=== PATIENT | female | born 1940 | race Caucasian/White ===

== ENCOUNTER 2018-05-10 09:44 | Emergency (ER) | payer OTHER ==
[~2018-05-10] VITALS: Ht 167.6 cm; Wt 68.0 kg
[2018-05-10] MEDS ORDERED: SYNTHROID50 MCG (09:57)
[2018-05-10] MEDS ORDERED: AVAPRO75 MG (09:57)
[2018-05-10] MEDS ORDERED: AMARYL (09:58)
== END 2018-05-10 19:19 | disposition home or self-care (01) ==
LOC: ER 09:44
DX: R11.2 Nausea with vomiting, unspecified (principal); R53.1 Weakness; F32.89 Other specified depressive episodes

== ENCOUNTER 2018-05-24 10:07 | Emergency (ER) | payer OTHER ==
[~2018-05-24] VITALS: Ht 157.5 cm; Wt 64.9 kg
[~2018-05-24 10:07] MED LIST: AMARYL; AVAPRO75 MG; SYNTHROID50 MCG
[2018-05-24] MEDS ORDERED: ACID REDUCER 1150 MG (11:00)
[2018-05-24] MEDS ORDERED: PENTYLENE GLY4000 ML (11:01)
[2018-05-24] MEDS ORDERED: OMEPRAZOLE20 MG (11:01)
[2018-05-24] MEDS ORDERED: VITAMIN B-121000 MCG (11:01)
[2018-05-24] MEDS ORDERED: CITALOPRAM HBR10 MG (11:01)
[2018-05-24] MEDS ORDERED: LASIX20 MG (11:02)
== END 2018-05-24 19:39 | disposition home or self-care (01) ==
LOC: ER 10:07
DX: K59.09 Other constipation (principal); L13.0 Dermatitis herpetiformis; R10.84 Generalized abdominal pain; N39.0 Urinary tract infection, site not specified; L89.329 Pressure ulcer of left buttock, unspecified stage

== ENCOUNTER 2018-06-21 13:41 | Emergency (ER) | payer OTHER ==
[~2018-06-21] VITALS: Ht 160 cm; Wt 66.7 kg
[~2018-06-21 13:41] MED LIST changes: +ACID REDUCER 1150 MG; +CITALOPRAM HBR10 MG; +LASIX20 MG; +OMEPRAZOLE20 MG; +PENTYLENE GLY4000 ML; +VITAMIN B-121000 MCG
[2018-06-21] MEDS ORDERED: SYNTHROID75 MCG PO (13:53)
[2018-06-21] MEDS ORDERED: APETIGEN P12.5 MG/15 PO (13:54)
[2018-06-21] MEDS ORDERED: GENTLE LAXATIVE5 M1 (13:54)
== END 2018-06-21 19:51 | disposition home or self-care (01) ==
LOC: ER 13:41
DX: I82.210 Acute embolism and thrombosis of superior vena cava (principal); I87.9 Disorder of vein, unspecified; R10.11 Right upper quadrant pain